=== PATIENT | male | born 1960 | race Hispanic/Latino ===

== ENCOUNTER → 2019-01-08 | Day surgery (SDC) | payer OTHER ==
[~2019-01-08] MED LIST: ATENOLOL50 MG; BACITRACIN 50,000 UNIT VIAL ONE; BUPIVACAINE HCL 0.5% INJ 30 ML VIAL INJ ONE; CEFAZOLIN SOD 2 GM/D5W 50ML 50 ML IV ONE; CEPHALEXIN250 MG PO; DEXAMETHASONE SOD PHOS INJ 4 MG/ML VIAL ONE; FENTANYL CITRATE/PF 100MCG/2 ML INJ ONE; ISOFLURANE INHAL SOLN 250 ML BTL INH ONE; KETOROLAC TROMETHAMINE 30 MG/ML VIAL ONE; ONDANSETRON HCL INJ 2MG/ML 2ML 2 MG/ML VIAL ONE; PROPOFOL IV EMULSION 10 MG/ML 20 ML VIAL ONE; TYLENOL WITH C1 EACH PO
[2019-01-08 10:00] VITALS: BP 123/73
--- NOTE | 2019-01-10 00:54 | Operative Report ---
DATE OF PROCEDURE: 01/08/2019 SURGEON: Catracho Herrera MD PREOPERATIVE DIAGNOSES: 1. Crush injury to the left index finger distal phalanx. 2. Nailbed injury, left index finger. POSTOPERATIVE DIAGNOSES: 1. Grade 1 open distal phalanx fracture, left index finger. 2. Nailbed injury, left index finger. OPERATION/PROCEDURE PERFORMED: The patient underwent a removal of the patient's left finger nail, irrigation and debridement of an open distal phalanx fracture, closure of a 2 cm open nailbed injury, and percutaneous pinning of the comminuted left index finger distal phalanx fracture. SLOT MACHINE FLOOR PERSON: BELKYS Shaw. ANESTHESIA: General endotracheal intubation anesthesia. IV FLUIDS: Per the Anesthesia records. BLOOD LOSS: Nominal. BRIEF DISCUSSION OF THE PATIENT'S OPERATIVE PROCEDURE: Mr. Perez was taken to the operating room, placed in the supine position on the operating table. Following the induction of general anesthesia as well as endotracheal intubation, the patient's left upper extremity was examined under anesthesia. He was found to have a gross deformity to his index finger. He had an obvious nailbed deformity and an apparent laceration along the border of his paronychia. A single stitch was in place in the region of this laceration. The patient's upper extremity was prepped and draped in a standard surgical fashion. The case was began by removing the patient's sutures and removing the patient's finger nail. This revealed an extensive nailbed injury. There was an underlying open comminuted distal phalanx fracture. This wound was copiously irrigated with a liter of bacitracin laid in normal saline. The soft tissues were also debrided at this time removing devitalized tissue. A 4-0 chromic gut suture was used to reapproximate the nailbed injury as well as the paronychia. A K-wire was then used to capture the major fracture fragments distally and hold them in line with the phalanx. The position of this K-wire as well as reduction of fracture was assessed using fluoroscopy and found to be appropriate. Attention was then turned to the patient's nailbed and paronychial injury. The soft tissues were reapproximated using 4-0 chromic gut suture. This resulted in reapproximation of the patient's nailbed injury and reconstruction of the paronychia. The patient's nailbed injury was then dressed sterilely. A finger splint was affixed to the patient's finger and the patient was then awakened and taken to the Postanesthesia Care Unit in stable condition. Raeann Kaur acted as the assistant plant manager for this case and was necessary for both prepping and draping the patient as well as retraction of soft tissues that allowed this case to be successful. MD SARI Leiva/JOSE ANGEL /[id number]
== END | disposition home or self-care (01) ==
LOC: OR 05:34
PROVIDERS: ATTEND Specialist
DX: S67.191A Crushing injury of left index finger, initial encounter (principal); S62.631B Displaced fracture of distal phalanx of left index finger, initial encounter for open fracture; R00.1 Bradycardia, unspecified; I10 Essential (primary) hypertension; E66.9 Obesity, unspecified; W27.8XXA Contact with other nonpowered hand tool, initial encounter; Z01.810 Encounter for preprocedural cardiovascular examination; Z68.34 Body mass index [BMI] 34.0-34.9, adult
CPT/HCPCS: 76000; 93005; C1713; J0690; J1100; J1885; J2405

== ENCOUNTER → 2022-07-13 | Outpatient (CLI) | payer OTHER ==
[~2022-07-13] MED LIST changes: -BACITRACIN 50,000 UNIT VIAL ONE; -BUPIVACAINE HCL 0.5% INJ 30 ML VIAL INJ ONE; -CEFAZOLIN SOD 2 GM/D5W 50ML 50 ML IV ONE; -DEXAMETHASONE SOD PHOS INJ 4 MG/ML VIAL ONE; -FENTANYL CITRATE/PF 100MCG/2 ML INJ ONE; -ISOFLURANE INHAL SOLN 250 ML BTL INH ONE; -KETOROLAC TROMETHAMINE 30 MG/ML VIAL ONE; -ONDANSETRON HCL INJ 2MG/ML 2ML 2 MG/ML VIAL ONE; -PROPOFOL IV EMULSION 10 MG/ML 20 ML VIAL ONE
== END ==
LOC: MRI 10:32
PROVIDERS: ATTEND Specialist
DX: S83.221A Peripheral tear of medial meniscus, current injury, right knee, initial encounter (principal)